=== PATIENT | male | born 1970 | race Caucasian/White ===

== ENCOUNTER → 2019-12-30 09:43 | Outpatient (CLI) | payer OTHER, SELFPAY ==
[2019-12-30 23:11] LABS: COVID19 Sendout Not Detected (Not Detect)
== END ==
PROVIDERS: Visit Provider Physician Assistant
DX: Z01.812 Encounter for preprocedural laboratory examination (principal)
CPT/HCPCS: 87635

== ENCOUNTER 2020-01-02 11:48 | Day surgery (SDC) | payer OTHER, SELFPAY ==
--- NOTE | 2020-01-02 | PATH_ITS ---
[facility] Accession Number: [id number] . 01 Material submitted: . PART A: colon - 4 MM ASCENDING COLON POLYP PART B: hepatic flexure - 4 MM HEPATIC FLEXURE COLON POLYP PART C: colon - 2 MM TRANSVERSE COLON POLYP PART D: splenic flexure - 2 MM SPLENIC FLEXURE POLYP . 02 Diagnosis: A. Ascending Colon Polyp, 4 mm, Biopsy: Tubular adenoma. . B. Hepatic Flexure Polyp, 4 mm, Biopsy: Tubular adenoma. . C. Transverse Colon Polyp, 2 mm, Biopsy: Tubular adenoma. . D. Splenic Flexure Polyp, 2 mm, Biopsy: Tubular adenoma. [facility] 01/03/2020 1047 Local . 02 Electronically signed: . Filipe Vaughn MD, PhD, Pathologist NPI- [id number] . 01 Gross description: . Part A: 4 MM ASCENDING COLON POLYP: Received in formalin is 1 fragment(s) of prescott, soft tissue measuring 0.3 x 0.3 x 0.3 cm submitted entirely in 1 cassette(s) Part B: 4 MM HEPATIC FLEXURE COLON POLYP: Received in formalin are 2 fragment(s) of prescott, soft tissue measuring 0.1 x 0.1 x 0.1 cm to 0.2 x 0.1 x 0.1 cm submitted entirely in 1 cassette(s) Part C: 2 MM TRANSVERSE COLON POLYP: Received in formalin are 2 fragment(s) of prescott, soft tissue measuring 0.1 x 0.1 x 0.1 cm to 0.2 x 0.2 x 0.2 cm submitted entirely in 1 cassette(s) Part D: 2 MM SPLENIC FLEXURE POLYP: Received in formalin are 3 fragment(s) of prescott, soft tissue measuring 0.1 x 0.1 x 0.1 cm to 0.3 x 0.2 x 0.2 cm submitted entirely in 1 cassette(s) /NIMISHA 01/02/2020 2103 [facility] . 02 Pathologist provided ICD-10: D12.2, D12.3 . 02 CPT . 172904, 022100, 846140, 259207 Performed at: [facility] [address] [address], [place], [place] [id number] MD Vance Beach MD Phone: [phone] Performed at: [id number] [place], [place] [id number] MD Felicia Osborne MD Phone: [phone]
--- NOTE | 2020-01-02 08:05 | PM.HP.1 ---
History of Present Illness History of Present Illness Date Patient Seen: 01/02/20 Time Patient Seen: 12:55 Chief complaint: 10628 SCREENING COLONOSCOPY Narrative: 49 Years Old Male seen today for consideration of a screening colonoscopy. There have been no lower GI symptoms suggesting disease such as change in bowel habits, bleeding, abdominal pain or anemia. There's been no family history of colon cancer or colon polyps. Overall health issues have been stable, including no major cardiac events for at least 6 weeks. 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, [employer] Household Members: 4 kids and Education: BA Alcohol drinks/day: 1/day Caffeine use/day: 3 Type of Exercise: eliptical and running Exercise Times per Week: 7 Guns in home: no Dental Care w/in 6 mos.: yes Sun Exposure: occasionally Seat Belt Use: yes Smoking Status: never smoker Drug Use: never Meds Home Medications and Allergies Home Medications Medication Instructions Recorded Confirmed Type No Known Home Medications 01/02/20 01/02/20 History Allergies Allergy/AdvReac Type Severity Reaction Status Date / Time No Known Drug Allergies Allergy Verified 01/02/20 11:57 Review of Systems Review of Systems ROS: Yes All systems reviewed with the patient and are negative except as otherwise documented Exam Narrative Exam Narrative: General: Alert and oriented, appearing stated age and in no acute distress. Head: Head normocephalic/atraumatic. PERRLA. Oral mucosa moist. Neck: Neck soft and supple, no lymphadenopathy. Lungs: Clear to auscultation bilaterally, no wheezes, rhonchi or rales. Heart: Normal S1 and S2 with regular rate and rhythm, no audible murmurs, rubs or gallops. Abdomen: Soft, non-tender, non-distended, no organomegaly. Possitive bowel sounds. Psych: Alert and oriented x 3. Skin: No concerning lesions. Assessment & Plan Assessment & Plan narrative: Screening for colon cancer 1. Colonoscopy The nature and character of the procedure as well as anticipated results were discussed. The possibility of not completing the procedure was also discussed. Possible complications including aspiration pneumonia, bleeding, perforation and reaction to medications either for sedation or preparation and missed lesions were discussed. Questions were answered and proceeding to the colonoscopy was elected. Informed consent signed.
--- NOTE | 2020-01-02 08:09 | PM.OP.ENDO ---
Operative Date/Time/Diagnoses Date of procedure: 01/02/20 Time of procedure: 13:00 Pre-op diagnosis: 1. Screening for colon cancer Post-op diagnosis: other (1. 4 mm ascending polyp, 4 mm hepatic flexure polyp, 2 mm transverse polyp, 2 mm splenic flexure polyp) Procedure & Clinicians Study performed: Colonoscopy Indications: 1. Screening for colon cancer Surgeon: Evelyn Hunter Procedure Notes Procedure in detail: ENDOSCOPIST: Evelyn Hunter MD Sedation RN: Jenna Drake RN Sedation start time: 12:59 Sedation end time: 13:27 PROCEDURE: Colonoscopy with cold biopsy INDICATIONS: 1. Screening for colon cancer MEDICATION: Levsin 0.125 mg sublingual, incremental doses of Versed and fentanyl until appropriate level sedation achieved. ASA CLASS: 2 CECAL WITHDRAWAL TIME: 16 minutes COMPLICATIONS: None. EXTENT OF PROCEDURE: Cecum. QUALITY OF PREP: Good with portions of liquid stool. PROCEDURE: Prior to insertion of the colonoscope, a digital rectal examination was accomplished with circumferential palpation of the distal rectal mucosa without significant findings being noted. The high-definition colonoscope was passed into the rectum in the usual fashion and advanced over to the cecum without difficulty. The ileocecal valve, appendiceal stoma, and medial wall all could be inspected and no abnormalities were seen. ASCENDING COLON: As the colonoscope was withdrawn, care was taken to expose and inspect the haustral folds and a 4 mm polyp was removed with cold biopsy forceps. HEPATIC FLEXURE: 4 mm polyp removed with cold biopsy forceps. Otherwise, normal, no diverticula, or other abnormalities. TRANSVERSE COLON: 2 mm polyp removed with cold biopsy forceps. Another 2 mm polyp was seen in the splenic flexure and removed with cold biopsy forceps. Otherwise, normal, no diverticula, or other abnormalities. DESCENDING COLON: Normal no polyps, diverticula or other abnormalities. SIGMOID COLON: Normal no polyps, diverticula or other abnormalities. RECTUM: Normal. J maneuver was produced. There was no significant perianal disease. The J maneuver was broken. The remainder of the rectum was inspected and there was no external hemorrhoid disease. The scope was withdrawn. IMPRESSION: 1. Ascending polyp x1, 4 mm, removed with cold biopsy forceps 2. Hepatic flexure polyp x1, 4 mm, removed with cold biopsy forceps 3. Transverse polyp x1, 2 mm, removed with cold biopsy forceps Report. Splenic flexure x1, 2 mm, removed with cold biopsy forceps PLAN: 1. Follow-up in clinic status post pathology results. The possibility of a missed lesion including a malignancy has been discussed with the patient previously. Potential alarm symptoms have been discussed and should be reported immediately.
[2020-01-02] MEDS: LACTATED RINGERS 1,000 ML 200 ML IV (12:15)
[2020-01-02 12:16] VITALS: BP 133/77; PULSE 68; RESP 17; TEMP 36.3; O2SAT 98; BMI 28.2
[2020-01-02] MEDS: fentaNYL 250 MCG/5 ML INJ IV (13:31)
[2020-01-02] MEDS: MIDAZOLAM 5 MG/5 ML VIAL IV (13:32)
[2020-01-02 13:33] VITALS: BP 113/70; PULSE 70; RESP 14; TEMP 37; O2SAT 95
[2020-01-02 13:38] VITALS: BP 114/72; PULSE 66; RESP 12; O2SAT 96
[2020-01-02 13:44] VITALS: BP 129/84; PULSE 70; RESP 12; O2SAT 97
[2020-01-02 13:55] VITALS: BP 102/69; PULSE 63; RESP 12; TEMP 36.6; O2SAT 96
--- NOTE | 2020-01-02 14:06 | SUR.PHASEII ---
A&O, stable, pleasant. All questions answered, tolerating PO well.
== END 2020-01-02 14:05 | disposition home or self-care (01) ==
PROVIDERS: PCP Student in an Organized Health Care Education/Training Program; Referring Provider Student in an Organized Health Care Education/Training Program; Visit Provider Student in an Organized Health Care Education/Training Program
PROC: 0DJD8ZZ Inspection of Lower Intestinal Tract, Via Natural or Artificial Opening Endoscopic (ICD-10-PCS; CPT 45378; principal; 2020-01-02 13:00)
DX: Z12.11 Encounter for screening for malignant neoplasm of colon (principal); E78.5 Hyperlipidemia, unspecified; D12.2 Benign neoplasm of ascending colon; D12.3 Benign neoplasm of transverse colon
CPT/HCPCS: 45380; J2250; J3010

== ENCOUNTER 2022-11-11 10:41 | Day surgery (SDC) | payer OTHER, SELFPAY ==
--- NOTE | 2022-11-11 | PATH_ITS ---
[facility] Accession Number: [id number] No. of containers..01 Tissue . 01 Material submitted: . colon - ASCENDING COLON POLYPS X 2 . 01 Diagnosis: Ascending Colon, Polyps x2, Biopsies: Tubular adenoma in three of six fragments. Benign lymphoid aggregate, two fragments. [facility] 11/13/2022 1800 Local . 01 Electronically signed: . Felicia Osborne MD, Pathologist NPI- [id number] . 01 Gross description: . ASCENDING COLON POLYPS X 2: Received in formalin are 4 fragment(s) of prescott, soft tissue measuring 0.1 x 0.1 x 0.1 cm to 0.6 x 0.1 x 0.1 cm submitted entirely in 1 cassette(s) /NIMISHA 11/12/2022 1915 Local . 01 Pathologist provided ICD-10: D12.2 . 01 CPT . 108301 Specimen Comment: A courtesy copy of this report has been sent to [phone] Performed at: 01 [facility] [address] [place] [address], [place], [place] [id number] MD Vance Beach MD Phone: [phone]
[2022-11-11 10:56] VITALS: BMI 27.6
[2022-11-11 11:12] VITALS: BP 128/77; PULSE 68; RESP 20; TEMP 36.2; O2SAT 100
[2022-11-11] MEDS: LACTATED RINGERS 1,000 ML 200 ML IV (11:16)
--- NOTE | 2022-11-11 11:49 | PM.HP.1 ---
History of Present Illness History of Present Illness Date Patient Seen: 11/11/22 Time Patient Seen: 11:49 Chief complaint: Screening Colonoscopy Narrative: The patient presents for colorectal screening. Colonoscopy 3 years ago demonstrated multiple benign polyps.. No personal or family history of colon cancer. On further history denies any recent gastrointestinal symptoms. No nausea, vomiting, abdominal pain, loss of appetite, unexplained weight loss, change in bowel habits, or blood per rectum. PFSH Social History household members: spouse and children Smoking Status: Never smoker alcohol intake: current Meds Home Medications and Allergies Allergies Allergy/AdvReac Type Severity Reaction Status Date / Time No Known Drug Allergies Allergy Verified 11/11/22 10:55 Exam Vital Signs (past 8 hours): - 11/11/22 11:12 Temperature 97.1 F L Pulse Rate 68 Respiratory Rate 20 Blood Pressure 128/77 Pulse Oximetry 100 Oxygen Delivery Method Room Air Oxygen Delivery Method Room Air Narrative Exam Narrative: General adult man alert oriented no acute distress Assessment & Plan Assessment and plan (1) Personal history of colonic polyps: Status: Acute Assessment & Plan narrative: The patient requires colorectal screening and colonoscopy is recommended. Technical details were discussed. Risks, benefits, alternatives explained. Risks including but not limited to myocardial infarction, aspiration, bleeding, pain, missed lesion, incomplete examination, need for further radiographic studies, colonic perforation, and need for major abdominal surgery were discussed. All questions were answered to their satisfaction, and they are in agreement with this plan.
--- NOTE | 2022-11-11 12:21 | PM.OP.COLON ---
Operative Date/Time/Diagnoses Date of procedure: 11/11/22 Time of procedure: 12:22 Pre-op diagnosis: Personal history of colonic polyps Post-op diagnosis: other (Colonic polyps x2) Procedure & Clinicians Study performed: Colonoscopy and polypectomy Same procedure as scheduled: Yes Indications: Personal history of colonic polyps, colorectal screening Surgeon: Rip Stern Procedure Notes Procedure in detail: The history and physical was performed/updated and the patient is ASA class is 2. The procedure was discussed in detail with the patient. Potential risks complications including infection, bleeding, missed diagnosis, perforation, need for surgery, and were explained. Their questions were answered and informed consent was obtained. Patient was brought to the procedure room and placed standard monitoring equipment. The patient's vital signs were monitored continuously throughout the entire procedure. Prior to starting time-out was performed. The patient was placed in the left lateral recumbent position. Procedural sedation was administered by anesthesia. Examination began with a thorough inspection of the perianal area there was no evidence of fissures, fistulae, external hemorrhoids or cutaneous malignancy. The colonoscopy scope was then placed into the anal canal and was advanced to the cecum, which was identified by the ileocecal valve, the appendiceal orifice and the confluence of the taenia. The scope was then slowly withdrawn examining colon thoroughly in all directions, irrigating it of any residual stool. Within the ascending colon there were 2 polyps both less than 5 mm removed with biopsy forceps. The remainder of the colon was normal in its appearance. Grade 1 internal hemorrhoids observed with retroflexion. The patient tolerated the procedure well. They will be discharged once criteria are met. The prep was of good/excellent quality. The withdrawl time was 9 minutes. Specimen(s): other (Ascending colonic polyps x2) Complications: none Impression: Colonic polyps x2 Post-procedure Plan for aftercare: Colonoscopy follow-up is dependent on pathology findings Disposition: same day surgery
[2022-11-11 12:27] VITALS: BP 114/66; PULSE 70; RESP 11; TEMP 36.6; O2SAT 95
[2022-11-11 12:33] VITALS: BP 124/75; PULSE 76; RESP 11; TEMP 36.6; O2SAT 97
[2022-11-11 12:41] VITALS: BP 131/81; PULSE 79; RESP 16; TEMP 36.6; O2SAT 98
[2022-11-11 12:48] VITALS: BP 129/81; PULSE 72; RESP 16; TEMP 36.6; O2SAT 99
== END 2022-11-11 12:48 | disposition home or self-care (01) ==
PROVIDERS: PCP Family Medicine; Referring Provider Surgery; Visit Provider Surgery
PROC: 0DJD8ZZ Inspection of Lower Intestinal Tract, Via Natural or Artificial Opening Endoscopic (ICD-10-PCS; CPT 45378; principal; 2022-11-11 11:45)
DX: Z12.11 Encounter for screening for malignant neoplasm of colon (principal); Z86.010 Personal history of colon polyps; K64.0 First degree hemorrhoids; D12.2 Benign neoplasm of ascending colon
CPT/HCPCS: 45380; J2250; J3010